=== PATIENT | female | born 1955 | race Caucasian/White ===

== ENCOUNTER 2019-04-07 02:06 | Emergency (ER) | payer BC ==
[2019-04-07 02:14] VITALS: BP 172/90; PULSE 75; RESP 18; TEMP 98
[2019-04-07] MEDS ORDERED: LIDOCAINE 5% PATCH TOPICAL STA (02:34)
[2019-04-07] MEDS ORDERED: KETOROLAC 30 MG/ML 1 ML VIAL IM STA (02:34)
[2019-04-07] MEDS ORDERED: DEXAMETHASONE SOD PHOSPHATE 10 MG/ML 1 ML VIAL IM STA (02:35)
[2019-04-07] MEDS ORDERED: DIAZEPAM 5 MG TAB PO STA (02:40)
--- NOTE | 2019-04-07 02:52 | ED ---
Back Pain HPI - General Chief Complaint: Back Pain/Injury Stated Complaint: Back Pain Time Seen by Provider: 04/07/19 02:15 Source: patient Limitations: no limitations - History of Present Illness Initial Comments: Patient is 63-year-old female presents emergency Department with a chief complaint of back spasms. Patient reports she developed muscle spasms approximately 2 weeks ago and she went to her primary care will prescribed muscle relaxers and obtain an x-ray. Patient reports X-ray was unremarkable. Patient reports the symptoms resolved and she was scheduled to undergo physical therapy treatment. Patient reports she came to [place] for a conference today and developed back spasms earlier today. Patient reports most of the spasming is in the right thoracic and lumbar region. Patient reports recurrent and 1 minute cycles. Patient denies any numbness or tingling. Patient denies saddle anesthesia, urinary incontinence or bowel continence. Patient reports taking a muscle relaxer one hour before coming to the ED. - Related Data Allergies Allergy/AdvReac Type Severity Reaction Status Date / Time No Known Allergies Allergy Verified 04/07/19 02:14 Review of Systems ROS Statement: Those systems with pertinent positive or pertinent negative responses have been documented in the HPI. ROS Other: All systems not noted in ROS Statement are negative. Past Medical History Past Medical History: No Reported History History of Any Multi-Drug Resistant Organisms: None Reported Past Surgical History: No Surgical Hx Reported Past Psychological History: No Psychological Hx Reported Smoking Status: Never smoker Past Alcohol Use History: Occasional Past Drug Use History: None Reported General Exam Limitations: no limitations General appearance: alert, in no apparent distress Head exam: Present: atraumatic, normocephalic, normal inspection Eye exam: Present: normal appearance, PERRL, EOMI Pupils: Present: normal accommodation ENT exam: Present: normal exam, normal oropharynx, mucous membranes moist, TM's normal bilaterally, normal external ear exam Neck exam: Present: normal inspection, full ROM Respiratory exam: Present: normal lung sounds bilaterally Cardiovascular Exam: Present: regular rate, normal rhythm, normal heart sounds Extremities exam: Present: normal inspection, full ROM, normal capillary refill, other (+2 ulnar and radial pulses bilaterally. +2 dorsalis pedis and posterior tibialis bilaterally.) Back exam: Present: normal inspection, tenderness, muscle spasm (Right paraspinal thoracic and lumbar region), paraspinal tenderness. Absent: full ROM (Eliot range of motion due to pain), CVA tenderness (R), CVA tenderness (L), vertebral tenderness Neurological exam: Present: alert, oriented X3 Psychiatric exam: Present: normal affect, normal mood Skin exam: Present: warm, intact, normal color Course Vital Signs 04/07/19 02:09 Temperature 98.0 F Pulse Rate 75 Respiratory 18 Rate Blood Pressure 172/90 O2 Sat by Pulse 98 Oximetry Medical Decision Making - Medical Decision Making Patient is 63-year-old female presenting to emergency Department with a chief complaint of muscle spasms. Patient reports muscle spasm for approximately 2 weeks that she has been able to control with a muscle relaxer. Recently she had a lumbar x-ray that was unremarkable. Patient reports she was a symptomatic for the last few days until she developed muscle spasms again. No cauda equina. No red flags. Patient was given a letter the arm patch and Toradol. Patient drove to the ED as currently staying in a hotel room. Patient will be given Valium tablet and advised to take it when she goes back to the hotel room because she drove to the ED. Strict return parameters were thoroughly discussed the patient was understanding and agreeable. Patient advised about the side effects of benzodiazepines. Case discussed with physician. Disposition Clinical Impression: Muscle spasm of back Disposition: HOME SELF-CARE Condition: Stable Instructions (If sedation given, give patient instructions): Muscle Spasm (ED) Additional Instructions: Please take prescribed medication as directed. Please follow up with primary care. Please return to emergency department since worsen. Please do not drive or operate machinery when taking Valium. Is patient prescribed a controlled substance at d/c from ED?: No Referrals: Nonstaff,Physician [Primary Care Provider] - 1-2 days Time of Disposition: 02:52
== END 2019-04-07 03:19 | disposition home or self-care (01) ==
LOC: EC 02:06
DX: M62.830 Muscle spasm of back (principal)
CPT/HCPCS: 99283; 96372; J1885

== ENCOUNTER 2019-04-07 11:56 | Emergency (ER) | payer BC ==
[2019-04-07] MEDS ORDERED: KETOROLAC 60 MG/2 ML VIAL IM STA (13:01)
[2019-04-07] MEDS ORDERED: MORPHINE SULFATE 4 MG/ML SYRINGE IM STA (13:01)
[2019-04-07] MEDS ORDERED: ORPHENADRINE 30 MG/ML 2 ML VIAL IM STA (13:01)
[2019-04-07 13:31] LABS: Appearance,Urine Clear (Clear); Bilirubin,Urine Negative (Negative); Blood,Urine Negative (Negative); Color,Urine Yellow; Glucose,Urine (UA) Negative (Negative); Ketones,Urine 1+ (Negative); Leukocyte Esterase,Urine Trace (Negative); Mucus,Urine Rare /hpf; Nitrite,Urine Negative (Negative); Protein,Urine Negative (Negative); RBC,Urine 1 /hpf (0-5); Specific Gravity,Urine 1.016 (1.001-1.035); Squamous Epithelial Cell,Urine 1 /hpf (0-4); Urobilinogen,Urine <2.0 mg/dL (<2.0)
--- NOTE | 2019-04-07 14:10 | ED ---
Back Pain HPI - General Chief Complaint: Back Pain/Injury Stated Complaint: Back pain Time Seen by Provider: 04/07/19 12:36 Source: patient, RN notes reviewed, old records reviewed Limitations: no limitations - History of Present Illness Initial Comments: Patient is a 63-year-old female presents emergency department today which included back spasms. Patient reports that she's been high as back spasms off and on for the past few weeks. She reports she is here in town on a conference and that her PCP is from her home town, [place]. Patient states that she has had no her fall or trauma. Patient states the pain is worse with certain movements. Patient was here last night received IM Toradol and was discharged one by mouth Valium. She reports that she took this at home and when she went to return to the conference today the pain returned.She denies abdominal pain, chest pain, shortness of breath. Denies saddle anesthesia, dysuria. - Related Data Home Medications Medication Instructions Recorded Confirmed Anastrozole [Arimidex] 1 mg PO HS 04/07/19 04/07/19 Losartan Potassium [Cozaar] 25 mg PO HS 04/07/19 04/07/19 Previous Rx's Medication Instructions Recorded Dexamethasone 0.75 mg PO DAILY #12 tab 04/07/19 Ibuprofen [Motrin] 600 mg PO Q8HR PRN #12 tab 04/07/19 traMADol HCl [Ultram] 50 mg PO Q6HR PRN 3 Days #12 tab 04/07/19 Allergies Allergy/AdvReac Type Severity Reaction Status Date / Time codeine AdvReac Unknown Verified 04/07/19 12:46 Review of Systems ROS Statement: Those systems with pertinent positive or pertinent negative responses have been documented in the HPI. ROS Other: All systems not noted in ROS Statement are negative. Past Medical History Past Medical History: Cancer, Hypertension Additional Past Medical History / Comment(s): breast cancer History of Any Multi-Drug Resistant Organisms: None Reported Past Surgical History: Section, Orthopedic Surgery, Tonsillectomy Past Psychological History: No Psychological Hx Reported Smoking Status: Never smoker Past Alcohol Use History: Occasional Past Drug Use History: None Reported General Exam - General Exam Comments Initial Comments: Pleasant 63 year old female, Moderate discomfort. Limitations: no limitations General appearance: alert, in no apparent distress Head exam: Present: atraumatic, normocephalic, normal inspection Eye exam: Present: normal appearance, PERRL, EOMI. Absent: scleral icterus, conjunctival injection, periorbital swelling ENT exam: Present: normal exam, mucous membranes moist Neck exam: Present: normal inspection. Absent: tenderness, meningismus, lymphadenopathy Respiratory exam: Present: normal lung sounds bilaterally. Absent: respiratory distress, wheezes, rales, rhonchi, stridor Cardiovascular Exam: Present: regular rate, normal rhythm, normal heart sounds. Absent: systolic murmur, diastolic murmur, rubs, gallop, clicks GI/Abdominal exam: Present: soft, normal bowel sounds. Absent: distended, tenderness, guarding, rebound, rigid Extremities exam: Present: normal inspection, full ROM, normal capillary refill, other (spasm over upper lumbar and mid thoracic right paraspinal muscle. ). Absent: tenderness, pedal edema, joint swelling, calf tenderness Neurological exam: Present: alert, oriented X3, CN II-XII intact Course Vital Signs 04/07/19 04/07/19 12:29 15:40 Temperature 97.8 F 98.2 F Pulse Rate 70 83 Respiratory 18 16 Rate Blood Pressure 145/81 145/78 O2 Sat by Pulse 100 98 Oximetry Medical Decision Making - Medical Decision Making 63 year old presented with back spasm for second time today. She was given IM pain medications with some relief, however on second recheck she reported pain returned. She reports it is position, but on recheck she felt concerned to go home. Discussed then at this time patient needs more work up incluid iv and CT scans. She then refused. Discussed ordering to rule out furhter lifethreatening causes and pateint adamently denies. She continues to stated simply muscle spasm. DC with short Rx of pain medication, and antiinflammatories medication. Disucssed return parameters. - Lab Data Lab Results 04/07/19 Range/Units 13:05 Urine Color Yellow Urine Appearance Clear (Clear) Urine pH 6.0 (5.0-8.0) Ur Specific [place] 1.016 (1.001-1.035) Urine Protein Negative (Negative) Urine Glucose (UA) Negative (Negative) Urine Ketones 1+ H (Negative) Urine Blood Negative (Negative) Urine Nitrite Negative (Negative) Urine Bilirubin Negative (Negative) Urine Urobilinogen <2.0 (<2.0) mg/dL Ur Leukocyte Esterase Trace H (Negative) Urine RBC 1 (0-5) /hpf Urine WBC 2 (0-5) /hpf Ur Squamous Epith Cells 1 (0-4) /hpf Urine Mucus Rare H (None) /hpf Disposition Clinical Impression: Back spasm Disposition: HOME SELF-CARE Condition: Good Instructions (If sedation given, give patient instructions): Muscle Spasm (ED), Back Pain (ED) Additional Instructions: Please use medication as discussed. Please follow up with family doctor if symptoms have not improved over the next two days. Please return to the emergency room if your symptoms increase or worsen or for any other concerns. Prescriptions: Dexamethasone 0.75 mg PO DAILY #12 tab Ibuprofen [Motrin] 600 mg PO Q8HR PRN #12 tab PRN Reason: Pain traMADol HCl [Ultram] 50 mg PO Q6HR PRN 3 Days #12 tab PRN Reason: Pain Is patient prescribed a controlled substance at d/c from ED?: Yes If prescribed controlled substance>3 days was MAPS reviewed?: Prescribed <3 Days If opioid is for acute pain is fill amount 7 days or less?: Yes If Rx opioid, was Start Talking consent form obtained?: Yes Referrals: Nonstaff,Physician [Primary Care Provider] - 1-2 days Time of Disposition: 14:44
[2019-04-07] MEDS ORDERED: CYCLOBENZAPRINE 10MG STARTER 3 TAB BTL PO STA (14:49)
[2019-04-07 15:56] VITALS: BP 145/78; PULSE 83; RESP 16; TEMP 98.2
== END 2019-04-07 15:55 | disposition home or self-care (01) ==
LOC: EC 11:56
DX: M62.830 Muscle spasm of back (principal); I10 Essential (primary) hypertension; Z79.899 Other long term (current) drug therapy; Z88.5 Allergy status to narcotic agent; Z53.29 Procedure and treatment not carried out because of patient's decision for other reasons; Z85.3 Personal history of malignant neoplasm of breast
CPT/HCPCS: 81001; 99284; 96372 ×3; J2270; J2360; J1885